=== PATIENT | female | born 1995 | race Caucasian/White ===

== ENCOUNTER 2020-06-12 16:24 | Emergency (ER) | payer SELFPAY ==
[~2020-06-12] VITALS: Ht 165.1 cm; Wt 65.9 kg
[2020-06-12] MEDS ORDERED: PENICILLN VK500 MG PO (17:18)
[2020-06-12 17:24] VITALS: BP 125/71
== END 2020-06-12 17:24 | disposition home or self-care (01) | DRG 603 ==
LOC: ED 16:24
DX: L02.91 Cutaneous abscess, unspecified (principal)

== ENCOUNTER 2020-07-18 16:57 | Emergency (ER) | payer OTHER ==
[~2020-07-18] VITALS: Ht 165.1 cm; Wt 65.9 kg
[~2020-07-18 16:57] MED LIST: PENICILLN VK500 MG PO
[2020-07-18 18:25] VITALS: BP 108/64
== END 2020-07-18 18:25 | disposition home or self-care (01) ==
LOC: ED 16:57
DX: M25.532 Pain in left wrist (principal); G89.29 Other chronic pain; F17.210 Nicotine dependence, cigarettes, uncomplicated